=== PATIENT | male | born 1935 | race Caucasian/White ===

== ENCOUNTER → 2017-12-02 | Outpatient (CLI) | payer MEDICARE ==
[~2017-12-02] MED LIST: AMLO5TAB7 PO; ASP81TEC PO; ASPI-999 PO; DIPH1TAB PO; DLT30T PO; FINA5TAB6 PO; LISI10TA2 PO; LISI5TAB PO; OMEP20TA2 PO; OMEP20TA7 PO
== END | disposition home or self-care (01) ==
LOC: PREOP 06:19
PROVIDERS: ATTEND Specialist
DX: Z01.818 Encounter for other preprocedural examination (principal)

== ENCOUNTER 2017-12-04 07:18 | Day surgery (SDC) | payer MEDICARE ==
[2017-12-02] MEDS: CYCLOPENTOLATE 1% (CYCLOGYL) 2 ML DROPS OP SCH (07:49)
[~2017-12-04] VITALS: Ht 170.2 cm; Wt 81.6 kg
--- OUTSIDE RECORDS SUMMARY | 2017-12-04 07:22 | XMS REPORT | Continuity of Care Document ---
Author Author [facility] Organization [facility] Address Unknown Phone Unavailable Care Team Providers Care Milk House Worker Name Role Phone NO, LOCAL PHYSICIAN PP Unavailable Insurance Providers Payer Name Policy Number Subscriber Name Relationship [employer] Mcr Supp [id number] Migel Gonzalez Self / Same As Patient Wps Medicare [id number] Migel Gonzalez Jr 01 Self / Same As Patient Advance Directives Directive Response Recorded Date Advance Directives Y 08/26/12 12:45pm Health Care Power of Rhia Y Daughter- Hattie Giordano 08/19/12 8:41pm Organ Donor Y 08/19/12 8:41pm Problems No Known Problems or Medical conditions. Social History History Response Recorded Date/Time Alcohol Use Regular Use 08/26/12 12:45pm Recreational Drug Use N 08/26/12 12:45pm Allergies, Adverse Reactions, Alerts Allergen Type Severity Reaction Last Updated No Known Drug Allergies 08/19/12 Medications Medication Dose Units Route Sig Qty Days Diltiazem HCl (Cardizem Po) 30 Mg PO BID Omeprazole 20 Mg PO DAILY Finasteride 5 Mg PO DAILY Lisinopril (Prinivil) 5 Mg PO BID Aspirin (Aspirin Ec 81 Mg) 81 Mg PO DAILY Immunizations Name Given Type Date of Pneumonia Vaccine 12/17/10 H Td (adult), adsorbed 08/19/12 A Response Recorded Date/Time Status not known Unknown Results No Known Relevant Diagnostic Tests, Laboratory Data and/or Discharge Summary. Encounters Encounter Location Date/Time Departed Emergency Room [facility] 12/29 12:06pm
--- OUTSIDE RECORDS SUMMARY | 2017-12-04 07:23 | XMS REPORT | Continuity of Care Document ---
Author Author [facility] Organization [facility] Address Unknown Phone Unavailable Care Team Providers Care Lumber Sorter Name Role Phone NO, LOCAL PHYSICIAN PP Unavailable Insurance Providers Payer Name Policy Number Subscriber Name Relationship Blue Cross Mcr Supp [id number] Migel Gonzalez Jr Self / Same As Patient Wps Medicare [id number] Migel Gonzalez Jr Self / Same As Patient Advance Directives Directive Response Recorded Date Advance Directives Y 08/19/12 8:41pm Health Care Power of Ready Mix Truck Driver Y Daughter- Hattie Giordano [phone] 08/19/12 8:41pm Organ Donor Y 08/19/12 8:41pm Problems No Known Problems or Medical conditions. Social History History Response Recorded Date/Time Alcohol Use Regular Use 08/19/12 8:41pm Recreational Drug Use N 08/19/12 8:41pm Allergies, Adverse Reactions, Alerts Allergen Type Severity [...] Encounters Encounter Location Date/Time Departed Emergency Room [facility] 05/29 8:27pm
--- OUTSIDE RECORDS SUMMARY | 2017-12-04 07:23 | XMS REPORT | Continuity of Care Document ---
Author Author [facility] Organization [facility] [address] [facility] Address Unknown Phone Unavailable Allergies Active Description Code Type Severity Reaction Onset Reported/Identified Relationship to Patient Clinical Status Yes No Known Drug Allergies [id number] Drug Allergy Unknown N/A 08/19/2012 Medications There is no data. Problems There is no data. Procedures There is no data. Results There is no data. Encounters ACCT No. Visit Date/Time Discharge Status Pt. Type Provider Facility Loc./Unit Complaint [id number] 08/26/2012 12:06:00 08/26/2012 12:59:00 DIS Emergency [id number] 08/19/2012 20:27:00 08/19/2012 22:09:00 DIS Emergency [id number] 12/15/2017 08:30:00 GRETCHEN Castellanos MD [facility] CATARACT RIGHT EYE [id number] 12/04/2017 09:00:00 GRETCHEN Castellanos MD [facility] CATARACT LEFT
[2017-12-04 07:30] VITALS: BP 160/79
[2017-12-04] MEDS ORDERED: LIDOCAINE PF 1% 2 ML AMP IR PRN (07:30)
[2017-12-04] MEDS ORDERED: POVIDONE (BETADINE) OPHTH SOLN 5% 30 ML OP ONE (07:30)
[2017-12-04] MEDS ORDERED: MOXIFLOXACIN OPHTH SOLN 5 MG/ML 0.3 ML SYRINGE OP ONE (07:30)
[2017-12-04] MEDS ORDERED: acetaZOLAMIDE ER 500 MG CAP (DIAMOX SEQUELS) PO ONE (07:30)
[2017-12-04] MEDS ORDERED: EPINEPHrine INJECTION 1 MG/ML AMP INJ ONE (07:30)
[2017-12-04] MEDS ORDERED: TIMOLOL MALEATE 0.5% 5 ML (TIMOPTIC) BTL OU PRN (07:30)
[2017-12-04] MEDS ORDERED: BSS 15 ML IR PRN (07:30)
[2017-12-04] MEDS: TETRACAINE 0.5% OPHTH SOLN 4 ML BTL (SINGLE DOSE ONLY) OU PRN ×4 (07:42→07:55)
[2017-12-04] MEDS: PHENYLEPHRINE 10% OPHTH (NEO-SYN) 5 ML BTL OU SCH ×3 (07:45→07:55)
[2017-12-04] MEDS: CYCLOPENTOLATE 1% (CYCLOGYL) 2 ML DROPS OP SCH ×3 (07:45→07:55)
[2017-12-04] MEDS ORDERED: MIDAZOLAM 2 MG/2 ML (VERSED) VIAL ONE (07:55)
--- NOTE | 2017-12-04 08:21 | Ophthalmologist Pre-Op Note ---
Pre-Operative Progress Note H&P Reviewed The H&P was reviewed, patient examined and no changes noted. Date H&P Reviewed: Dec 04, 2017 Time H&P Reviewed: 08:20 Pre-Op Dx Cataract, Left Eye GRETCHEN HAYDEN MD Dec 04, 2017 08:21
--- NOTE | 2017-12-04 08:44 | Ophthalmology Operative Report ---
Cataract removal/placement IOL PREOPERATIVE DIAGNOSIS: Cataract Left Eye POSTOPERATIVE DIAGNOSIS: Cataract Left Eye PROCEDURE: Cataract removal and placement of posterior chamber implant, left eye SURGEON: Austin Hayden ANESTHESIA: Topical with sedation COMPLICATIONS: None ESTIMATED BLOOD LOSS: Minimal DESCRIPTION OF PROCEDURE: After proper informed consent was obtained, the patient, a 82 male, was taken to the Operating Room and the left eye was anesthetized with tetracaine. The left eye was then prepped and draped in the usual manner. A wire lid speculum was placed. A paracentesis was made at the left hand position. Preservative free lidocaine was injected into the anterior chamber followed by viscoelastic. A clear corneal incision was made in the temporal position. A capsulorrhexis was preformed and the central nuclear and cortical material were removed. The posterior capsule was polished and an Darin 19.5 AU00T0 was placed into the capsular bag. The residual viscoelastic was aspirated and balanced saline solution was injected into the anterior chamber. Moxifloxacin was injected into the anterior chamber. The wound was checked and found to be water tight. The patient tolerated the procedure well without complications. AUSTIN HAYDEN MD Dec 04, 2017 08:44
[2017-12-04 08:55] VITALS: BP 133/74
--- NOTE | 2017-12-04 11:30 | Anesthesia-General Post-Op ---
MAC Patient Condition Mental Status/LOC: Same as Preop Cardiovascular: Satisfactory Nausea/Vomiting: Absent Respiratory: Satisfactory Pain: Controlled Complications: Absent Post Op Complications Complications None Follow Up Care/Instructions Patient Instructions None needed. Anesthesiology Discharge Order Discharge Order Patient is doing well, no complaints, stable vital signs, no apparent adverse anesthesia problems. No complications reported per nursing. COLIN LEARY CRNA Dec 04, 2017 11:30
== END 2017-12-04 08:55 | disposition home or self-care (01) ==
LOC: SDC 07:18
PROVIDERS: ATTEND Specialist
DX: H25.12 Age-related nuclear cataract, left eye (principal); I10 Essential (primary) hypertension; K21.9 Gastro-esophageal reflux disease without esophagitis; G57.93 Unspecified mononeuropathy of bilateral lower limbs; C18.9 Malignant neoplasm of colon, unspecified; C78.00 Secondary malignant neoplasm of unspecified lung; Z79.82 Long term (current) use of aspirin; Z79.899 Other long term (current) drug therapy

== ENCOUNTER 2017-12-11 05:33 | Outpatient (CLI) | payer MEDICARE | END 2017-12-11 09:54 | disposition home or self-care (01) | LOC: PREOP 05:33 | PROVIDERS: ATTEND Specialist | DX: Z01.818 Encounter for other preprocedural examination (principal) ==

== ENCOUNTER 2017-12-15 06:40 | Day surgery (SDC) | payer MEDICARE ==
[~2017-12-15] VITALS: Ht 170.2 cm; Wt 81.6 kg
--- OUTSIDE RECORDS SUMMARY | 2017-12-15 06:43 | XMS REPORT | Continuity of Care Document ---
Author Author [facility] Organization [facility] Address Unknown Phone Unavailable Allergies Active Description Code Type Severity Reaction Onset Reported/Identified Relationship to Patient Clinical Status Yes No Known Drug Allergies [id number] Drug Allergy Unknown N/A 12/02/2017 Medications There is no data. 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 12/04/2017 GRETCHEN HAYDEN MD Ot H25.12 AGE-RELATED NUCLEAR CATARACT, LEFT EYE 12/04/2017 GRETCHEN HAYDEN MD Ot I10 ESSENTIAL (PRIMARY) HYPERTENSION 12/04/2017 GRETCHEN HAYDEN MD Ot K21.9 GASTRO-ESOPHAGEAL REFLUX DISEASE WITHOUT 12/04/2017 GRETCHEN HAYDEN MD Ot Z79.82 STOCK MOVER (CURRENT) USE OF ASPIRIN 12/04/2017 GRETCHEN HAYDEN MD Ot Z79.899 OTHER LONG-TERM (CURRENT) DRUG THERAPY 12/08/2017 GRETCHEN HAYDEN MD, Ot C18.9 MALIGNANT NEOPLASM OF COLON, UNSPECIFIED 12/08/2017 GRETCHEN HAYDEN MD, Ot C78.00 SECONDARY MALIGNANT NEOPLASM OF UNSPECIF 12/08/2017 GRETCHEN HAYDEN MD Ot 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 12/08/2017 GRETCHEN HAYDEN MD, Ot H25.12 AGE-RELATED NUCLEAR CATARACT, LEFT EYE 12/08/2017 GRETCHEN HAYDEN MD Ot I10 ESSENTIAL (PRIMARY) HYPERTENSION 12/08/2017 GRETCHEN HAYDEN MD Ot K21.9 GASTRO-ESOPHAGEAL REFLUX DISEASE WITHOUT 12/08/2017 GRETCHEN HAYDEN MD Ot Z79.82 LONG-TERM (CURRENT) USE OF ASPIRIN 12/08/2017 GRETCHEN HAYDEN MD Ot Z79.899 OTHER STOCK MOVER (CURRENT) DRUG THERAPY 12/09/2017 GRETCHEN HAYDEN MD Ot C18.9 MALIGNANT NEOPLASM OF COLON, UNSPECIFIED 12/09/2017 GRETCHEN HAYDEN MD Ot 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 Results There is no data. Encounters ACCT No. Visit Date/Time Discharge Status Pt. Type Provider Facility Loc./Unit Complaint [id number] 12/04/2017 07:18:00 12/04/2017 08:55:00 DIS Outpatient GRETCHEN HAYDEN MD [facility] SDC CATARACT LEFT [id number] 12/02/2017 06:19:00 12/02/2017 23:59:59 CLS Outpatient GRETCHEN HAYDEN MD [facility] PREOP CATARACT LEFT [id number] 08/26/2012 12:06:00 08/26/2012 12:59:00 DIS Emergency MILAN LO MD [facility] ER SUTURE REMOVAL [id number] 08/19/2012 20:27:00 08/19/2012 22:09:00 DIS Emergency [id number] 12/15/2017 08:30:00 CORINNA HAYDEN MD, GRET[facility] CATARACT RIGHT EYE
[2017-12-15 06:49] VITALS: BP 163/88
[2017-12-15] MEDS ORDERED: EPINEPHrine INJECTION 1 MG/ML AMP INJ ONE (07:00)
[2017-12-15] MEDS ORDERED: POVIDONE (BETADINE) OPHTH SOLN 5% 30 ML OP ONE (07:00)
[2017-12-15] MEDS ORDERED: MOXIFLOXACIN OPHTH SOLN 5 MG/ML 0.3 ML SYRINGE OP ONE (07:00)
[2017-12-15] MEDS ORDERED: LIDOCAINE PF 1% 2 ML AMP IR PRN (07:00)
[2017-12-15] MEDS ORDERED: BSS 15 ML IR PRN (07:00)
[2017-12-15] MEDS ORDERED: TIMOLOL MALEATE 0.5% 5 ML (TIMOPTIC) BTL OU PRN (07:00)
[2017-12-15] MEDS: TETRACAINE 0.5% OPHTH SOLN 4 ML BTL (SINGLE DOSE ONLY) OU PRN ×4 (07:01→07:22)
[2017-12-15] MEDS: PHENYLEPHRINE 10% OPHTH (NEO-SYN) 5 ML BTL OU SCH ×3 (07:11→07:22)
[2017-12-15] MEDS: CYCLOPENTOLATE 1% (CYCLOGYL) 2 ML DROPS OP SCH ×3 (07:11→07:22)
[2017-12-15] MEDS ORDERED: MIDAZOLAM 2 MG/2 ML (VERSED) VIAL ONE (07:32)
--- NOTE | 2017-12-15 07:55 | Ophthalmologist Pre-Op Note ---
Pre-Operative Progress Note H&P Reviewed The H&P was reviewed, patient examined and no changes noted. Date H&P Reviewed: Dec 15, 2017 Time H&P Reviewed: 07:55 Pre-Op Dx Cataract, Right Eye GRETCHEN HAYDEN MD Dec 15, 2017 07:55
--- NOTE | 2017-12-15 08:19 | Ophthalmology Operative Report ---
Cataract removal/placement IOL PREOPERATIVE DIAGNOSIS: Cataract Right Eye POSTOPERATIVE DIAGNOSIS: Cataract Right Eye PROCEDURE: Cataract removal and placement of posterior chamber implant, right eye SURGEON: Austin Hayden ANESTHESIA: Topical with sedation COMPLICATIONS: None ESTIMATED BLOOD LOSS: Minimal DESCRIPTION OF PROCEDURE: After proper informed consent was obtained, the patient, a 82 male, was taken to the Operating Room and the right eye was anesthetized with tetracaine. The right eye was then prepped and draped in the usual manner. A wire lid speculum was placed. A paracentesis was made at the left hand position. Preservative free lidocaine was injected into the anterior chamber followed by viscoelastic. A clear corneal incision was made in the temporal position. A capsulorrhexis was preformed and the central nuclear and cortical material were removed. The posterior capsule was polished and Darin [id number] 19.5 IOL was placed into the capsular bag. The residual viscoelastic was aspirated and balanced saline solution was injected into the anterior chamber. Moxifloxacin was injected into the anterior chamber. The wound was checked and found to be water tight. The patient tolerated the procedure well without complications. AUSTIN HAYDEN MD Dec 15, 2017 08:19
[2017-12-15 08:25] VITALS: BP 149/79
[2017-12-15] MEDS ORDERED: acetaZOLAMIDE ER 500 MG CAP (DIAMOX SEQUELS) PO ONE (08:30)
== END 2017-12-15 08:26 | disposition home or self-care (01) ==
LOC: SDC 06:40
PROVIDERS: ATTEND Specialist
DX: H25.11 Age-related nuclear cataract, right eye (principal); I10 Essential (primary) hypertension; K21.9 Gastro-esophageal reflux disease without esophagitis; G57.92 Unspecified mononeuropathy of left lower limb; C18.9 Malignant neoplasm of colon, unspecified; C78.00 Secondary malignant neoplasm of unspecified lung; Z79.82 Long term (current) use of aspirin; Z79.899 Other long term (current) drug therapy

== ENCOUNTER 2019-10-28 13:36 | Outpatient (RCR) | payer MEDICARE ==
[~2019-10-28 13:36] MED LIST changes: -AMLO5TAB7 PO; +AMLO5TAB9 PO
== END 2019-10-28 14:30 | disposition home or self-care (01) ==
PROVIDERS: ATTEND Neurological Surgery
DX: M54.5 Low back pain (principal)